=== PATIENT | male | born 1960 | race Caucasian/White ===

== ENCOUNTER 2024-06-03 13:16 | Outpatient (CLI) | payer BC, SELFPAY ==
--- NOTE | 2024-06-03 14:59 | W.ANESCHARGE ---
Anesthesia Charges Start Date/Time Anesthesia Start Date: 06/03/24 Anesthesia Start Time: 12:30 Stop Date/Time Anesthesia Stop Date: 06/03/24 Anesthesia Stop Time: 14:54 Coding CPT Codes CPT Codes: KALANI LWHerb INTST NDSC NOS - [id number] ([id number]) P2 - PATIENT W/MILD SYST DISEASE, QX - CHANNEL CEMENTER INSOLE MACHINE SVC W/ MD MED DIRECTION, QK - TRANSPORT AIDE 2-4 CNCRNT ANEWilliam PROC
--- NOTE | 2024-06-03 15:05 | W.ANESCHARGE ---
Anesthesia Charges Start Date/Time Anesthesia Start Date: 06/03/24 Anesthesia Start Time: 12:30 Stop Date/Time Anesthesia Stop Date: 06/03/24 Anesthesia Stop Time: 14:54 Coding CPT Codes CPT Codes: KALANI LWR INTST NDSC NOS - [id number] ([id number]) QK - TRIMMER CLIMBER 2-4 CNCRNT KALANI PROC, QX - UNEMPLOYMENT INSPECTOR SVC W/ MD MED DIRECTION, P2 - PATIENT W/MILD SYST DISEASE
--- NOTE | 2024-06-03 15:07 | W.ANESCHARGE ---
Anesthesia Charges Start Date/Time Anesthesia Start Date: 06/03/24 Anesthesia Start Time: 14:30 Stop Date/Time Anesthesia Stop Date: 06/03/24 Anesthesia Stop Time: 14:54 Coding CPT Codes CPT Codes: KALANI LWR INTST NDSC NOS - [id number] ([id number]) P2 - PATIENT W/MILD SYST DISEASE, QK - CHINESE INSTRUCTOR 2-4 CNCRNT ANES PROC, QX - ASPHALT SPREADER OPERATOR SVC W/ MD MED DIRECTION
== END 2024-06-03 13:17 | disposition home or self-care (01) ==
LOC: OP CLINIC 13:19
PROVIDERS: PCP Family Medicine; Visit Provider Internal Medicine Gastroenterology
DX: Z12.11 Encounter for screening for malignant neoplasm of colon (principal); D12.2 Benign neoplasm of ascending colon; Z86.0101 Personal history of adenomatous and serrated colon polyps
CPT/HCPCS: 00811; 45385; J2704